=== PATIENT | male | born 1980 | race Caucasian/White ===

== ENCOUNTER 2025-04-28 18:09 | Emergency (ER) | payer MEDICAID ==
[~2025-04-28] VITALS: Ht 177.8 cm; Wt 80.0 kg
[2025-04-28 18:12] VITALS: O2SAT 99
[2025-04-28 18:48] LABS: BG BASE EXCESS 1.3 mmol/L (-2.0-3.0); BG CARBOXYHEMOGLOBIN 5.0 % (0.5-1.5); BG DEOXYHEMOGLOBIN 4.4 % (0.0-5.0); BG FRACTION INSPIRED OXYGEN 21; BG HCO3 ACT 25.4 mmol/L (21.0-28.0); BG METHEMOGLOBIN 0.3 % (0.5-1.5); BG OXYGEN SATURATION 95.4 % (94.0-98.0); BG OXYHEMOGLOBIN 90.3 % (94.0-98.0); BG PCO2 38.8 mmHg (35.0-48.0); BG PH 7.434 (7.350-7.450); BG PO2 72.0 mmHg (83.0-108.0); BG SAMPLE SITE LEFT BRACHIAL; BG TOTAL HEMOGLOBIN 17.5 g/dL (13.5-17.5); BG VENT MODE ROOM AIR
[2025-04-28 19:19] LABS: BASOPHILS % 0.3 % (0.0-2.0); EOSINOPHILS % 0.9 % (0.0-5.0); HEMATOCRIT. 47.6 % (42.0-52.0); HEMOGLOBIN. 16.5 g/dL (14.0-18.0); LYMPHOCYTES % 27.3 % (20.0-50.0); MEAN PLATELET VOLUME 8.2 fl (7.4-10.4); MONOCYTES % 5.8 % (2.0-8.0); NEUTROPHILS % 65.7 % (40.0-76.0); PLATELET 244 x1000/uL (130-400); RED BLOOD CELL COUNT 5.54 mill/uL (4.7-6.1); RED CELL DISTRIBUTION WIDTH 13.5 % (11.6-14.6)
[2025-04-28 19:23] LABS: CREATININE 0.9 mg/dL (0.6-1.3)
[2025-04-28 19:24] LABS: UREA NITROGEN BLOOD 8 mg/dL (9-23)
[2025-04-28 19:25] LABS: ASPARTATE AMINOTRANSFERASE 17 IU/L (<34); TROPONIN I HIGH SENSITIVITY < 4 ng/L (3.0-53)
[2025-04-28 19:26] LABS: BILIRUBIN DIRECT < 0.1 mg/dL (<=3.0); BILIRUBIN TOTAL 0.5 mg/dL (0.1-1.0); PROTEIN TOTAL 6.9 g/dL (6.0-8.3)
[2025-04-28] MEDS: SODIUM CHLORIDE 0.9% 1,000 ML IV ONE (19:27)
[2025-04-28] MEDS: INSULIN REGULAR (HUMULIN R) 1000UNITS/10ML VIAL IV ONE (20:27)
[2025-04-28] MEDS ORDERED: INSU100I24 SQ (22:17)
[2025-04-28 22:29] VITALS: BP 131/82; PULSE 61; RESP 15; TEMP 37.1; O2SAT 99
== END 2025-04-28 22:43 | disposition home or self-care (01) ==
LOC: ER 18:09
DX: E11.65 Type 2 diabetes mellitus with hyperglycemia (principal); E78.00 Pure hypercholesterolemia, unspecified; F19.90 Other psychoactive substance use, unspecified, uncomplicated; R07.9 Chest pain, unspecified
CPT/HCPCS: 99284; 96374; 71045; 96361; 80076; 80048; 82010; 83930; 85025; 84484; 36415; 82805; 82375; 93005; 36600; J7030; J1815